=== PATIENT | female | born 1965 | race Caucasian/White ===

== ENCOUNTER → 2017-11-22 | Outpatient (CLI) | payer BC ==
[~2017-11-22] MED LIST: CYCL10TA6 PO; IBUP600T44 PO; LEVO25TA34 PO; MULT-506 PO; OXYC5TAB PO; RANI150T85 PO
== END | disposition home or self-care (01) ==
LOC: C.PAPS 15:12
PROVIDERS: ATTEND Obstetrics & Gynecology
DX: Z01.419 Encounter for gynecological examination (general) (routine) without abnormal findings (principal)